=== PATIENT | female | born 1945 | race Caucasian/White ===

== ENCOUNTER 2016-07-09 09:37 | Outpatient (RCR) | payer OTHER ==
[~2016-07-09 09:37] MED LIST: CALC600T10 PO; KEPP250T5 PO; PANT40TA2 PO; [UNRECOGNIZED DRUG - CODE] IV
[2016-07-29] MEDS ORDERED: DEXA2TA PO (14:07)
--- NOTE | 2016-08-01 09:04 | RADONC ---
RADIATION ONCOLOGY PROGRESS NOTE: DATE: 07/29/2016 Ms. Salazar is presently at a dose of 1440 cGy to her primary brain tumor and is tolerating treatments quite well at this point with no complaints related to her radiation therapy. She is not having any headaches or other problems. REVIEW OF SYSTEMS: The patient's review of systems is noncontributory. Denies nausea, vomiting, fevers, chills, night sweats, diplopia, headaches, anxiety or depression, anorexia, weight loss, visual disturbances, chest pain, urinary or bowel difficulties, bone pain, or neurological problems. PHYSICAL EXAMINATION: The patient's skin is in excellent condition with no evidence of moist or dry desquamation. The remainder of her physical exam remains unchanged. Ms. Frazier is tolerating treatments quite well and radiation will continue as scheduled.
== END 2016-07-30 ==
LOC: M ONCR 09:37
PROVIDERS: ATTEND Radiology Radiation Oncology
DX: C71.3 Malignant neoplasm of parietal lobe (principal)

== ENCOUNTER → 2016-07-16 | Outpatient (CLI) | payer OTHER | LOC: M RAD 08:25 | PROVIDERS: ATTEND Radiology Radiation Oncology | DX: C71.3 Malignant neoplasm of parietal lobe (principal) ==

== ENCOUNTER 2016-07-31 11:53 | Outpatient (RCR) | payer OTHER ==
[~2016-07-31 11:53] MED LIST changes: +DEXA2TA PO
--- NOTE | 2016-08-07 09:03 | RADONC ---
RADIATION ONCOLOGY PROGRESS NOTE DATE: 08/05/2016 CHART NUMBER: [id number] Ms. Salazar is presently a dose of 2340 cGy to her brain tumor and is tolerating treatments quite well at this point with no complaints related to her radiation therapy. She is having no headaches or other problems. The patient's review of systems is noncontributory. She denies nausea, vomiting, fevers, chills, night sweats, diplopia, headaches, anxiety or depression, anorexia, weight loss, visual disturbances, chest pain, urinary or bowel difficulties, bone pain, or neurological problems. PHYSICAL EXAMINATION: The patient's skin is in good condition with no evidence of radiation change present. There is no moist or dry desquamation. The remainder of her physical exam remains unchanged. Ms. Salazar is tolerating treatments quite well and radiation will continue as scheduled.
--- NOTE | 2016-08-13 11:47 | RADONC ---
RADIATION ONCOLOGY PROGRESS NOTE DATE: 08/12/2016 CHART NUMBER: [id number] Ms. Salazar is presently at a dose of 3240 centigrade to her brain primary site and is tolerating treatments quite well at this point with no complaints related to her radiation therapy. She is having no headaches or other problems. REVIEW OF SYSTEMS: The patient's review of systems is noncontributory. Denies nausea, vomiting, fevers, chills, night sweats, diplopia, headaches, anxiety or depression, anorexia, weight loss, visual disturbances, chest pain, urinary or bowel difficulties, bone pain, or neurological problems. PHYSICAL EXAMINATION: The patient's skin is in good condition with no evidence of radiation change present. There is no moist or dry desquamation. The remainder of her physical exam remains unchanged. Ms. Cox is tolerating treatments quite well and radiation will continue as scheduled. Edited: 08/14/2016 0522 rosana
--- NOTE | 2016-08-22 08:57 | RADONC ---
RADIATION ONCOLOGY PROGRESS NOTE DATE: 08/19/2016 CHART NUMBER: [id number] Ms. Salazar is presently on a dose of 4140 cGy to her brain primary and is tolerating treatments quite well at this point with no complaints at all related to her radiation therapy. She is having no headaches or other problems. Overall, the patient says she feels incredibly well. She has energy and is having no problems. REVIEW OF SYSTEMS: The patient's review of systems is noncontributory. Denies nausea, vomiting, fevers, chills, night sweats, diplopia, headaches, anxiety or depression, anorexia, weight loss, visual disturbances, chest pain, urinary or bowel difficulties, bone pain, or neurological problems. PHYSICAL EXAMINATION: The patient's skin is in good condition with no evidence of radiation change present. There is no moist or dry desquamation. The remainder of physical exam remains unchanged. Ms. Salazar is tolerating treatments quite well and radiation will continue as scheduled.
--- NOTE | 2016-08-27 07:12 | RADONC ---
RADIATION ONCOLOGY PROGRESS NOTE: DATE: 08/26/2016 Ms Salazar is presently at a dose of 5040 cGy to her brain primary site and is tolerating treatments quite well at this point with no complaints related to her radiation therapy. She is having no headaches or other problems. REVIEW OF SYSTEMS: The patient's review of systems is noncontributory. Denies nausea, vomiting, fevers, chills, night sweats, diplopia, headaches, anxiety or depression, anorexia, weight loss, visual disturbances, chest pain, urinary or bowel difficulties, bone pain, or neurological problems. PHYSICAL EXAMINATION: The patient's skin is in good condition with no evidence of radiation change present. There is no moist or dry desquamation. The remainder of her physical exam remains unchanged. She is neurologically intact. Ms. Frazier is tolerating treatments quite well and radiation will continue as scheduled.
== END 2016-08-27 ==
LOC: M ONCR 11:53
PROVIDERS: ATTEND Radiology Radiation Oncology
DX: C71.3 Malignant neoplasm of parietal lobe (principal)

== ENCOUNTER → 2016-08-20 | Outpatient (REF) | payer OTHER | LOC: M LABDRAW1 11:30 | PROVIDERS: ATTEND Internal Medicine Cardiovascular Disease | DX: R94.31 Abnormal electrocardiogram [ECG] [EKG] (principal) ==

== ENCOUNTER 2016-08-28 14:30 | Outpatient (RCR) | payer OTHER ==
--- NOTE | 2016-09-03 09:29 | RADONC ---
RADIATION ONCOLOGY PROGRESS NOTE DATE: 09/02/2016 CHART NUMBER: [id number]. Ms. Salazar is presently dose of 5760 cGy to her primary brain and is tolerating treatments quite well at this point with no significant complaints at that related to her radiation therapy. REVIEW OF SYSTEMS: The patient's review of systems is largely noncontributory. She denies nausea, vomiting, fevers, chills, night sweats, diplopia, headaches, anxiety or depression, anorexia, weight loss, visual disturbances, chest pain, urinary or bowel difficulties, bone pain, or neurological problems. PHYSICAL EXAMINATION: The patient's skin is in good condition with no evidence of moist or dry desquamation. The remainder of her physical exam remains unchanged. Ms. Salazar is tolerating treatments quite well and radiation is scheduled for completion tomorrow.
--- NOTE | 2016-09-04 13:16 | RADONC ---
RADIATION ONCOLOGY TREATMENT SUMMARY DATE: 09/03/2016 CHART NUMBER: [id number]. DIAGNOSIS: Glioblastoma multiforme. GRADE: IV. ECOG PERFORMANCE STATUS: 0. TREATMENT SUMMARY: Ms. Salazar is a truly delightful, 71-year-old white female with the diagnosis of the glioblastoma multiforme who presented to us for consideration of definitive external beam radiation therapy with IMRT/IGRT. We treated the patient to her primary site for a total dose of 5940 cGy delivered in 33 fractions of 180 cGy each over 47 elapsed days from 07/18/2016 through 09/03/2016. The patient was treated on the linear accelerator utilizing a 6 MV photon beam via IMRT/IGRT. Ms. Salazar tolerated her treatments quite well with no difficulties related to her radiation therapy. She was able to complete therapy as prescribed without interruption. I have scheduled the patient to see me again in 1 month for further followup. She will also continue to be followed by her other physicians as well. I am giving the patient a Decadron taper schedule. cc: Lizbeth Siegel MD *Dr. Hyde *Onel Mclain MD
== END 2016-09-27 ==
LOC: M ONCR 14:30
PROVIDERS: ATTEND Radiology Radiation Oncology
DX: C71.3 Malignant neoplasm of parietal lobe (principal)

== ENCOUNTER 2016-08-30 13:46 | Outpatient (CLI) | payer OTHER ==
[~2016-08-30] VITALS: Ht 160 cm; Wt 73.3 kg
[~2016-08-30 13:46] MED LIST changes: +ACETAMINOPHEN TAB 650MG DOSE (2X325MG) PO SCH; +diphenhydrAMINE 25 MG CAP PO SCH
== END 2016-08-30 16:30 | disposition home or self-care (01) ==
LOC: M INFU 13:46
PROVIDERS: ATTEND Internal Medicine Medical Oncology
DX: D69.6 Thrombocytopenia, unspecified (principal)
CPT/HCPCS: 36430; 86900; 86901; P9036

== ENCOUNTER → 2016-09-28 | Outpatient (CLI) | payer OTHER ==
[~2016-09-28] MED LIST changes: -ACETAMINOPHEN TAB 650MG DOSE (2X325MG) PO SCH; -diphenhydrAMINE 25 MG CAP PO SCH
[2016-09-28 12:14] LABS: MEAN CORPUSCULAR HEMOGLOBIN 34.3 pg (27.0-33.0); MEAN CORPUSCULAR HGB CONC 33.7 g/dl (32.0-36.5); MEAN CORPUSCULAR VOLUME 101.8 fl (80.0-96.0); WHITE BLOOD COUNT 4.5 K/mm3 (4.0-10.0)
== END ==
LOC: M LAB 11:04
PROVIDERS: ATTEND Internal Medicine Medical Oncology
DX: D64.9 Anemia, unspecified (principal)

== ENCOUNTER 2016-09-30 06:59 | Outpatient (CLI) | payer OTHER ==
[~2016-09-30] VITALS: Ht 160 cm; Wt 73.3 kg
[2016-09-30] MEDS ORDERED: diphenhydrAMINE 25 MG CAP PO SCH (07:00)
[2016-09-30] MEDS ORDERED: ACETAMINOPHEN TAB 650MG DOSE (2X325MG) PO SCH (07:01)
== END 2016-09-30 12:00 | disposition home or self-care (01) ==
LOC: M INFU 06:59
PROVIDERS: ATTEND Internal Medicine Medical Oncology
DX: D46.9 Myelodysplastic syndrome, unspecified (principal); I48.91 Unspecified atrial fibrillation; Z79.899 Other long term (current) drug therapy
CPT/HCPCS: 36430; P9016

== ENCOUNTER → 2016-10-09 | Outpatient (CLI) | payer MEDICARE, OTHER ==
--- NOTE | 2016-10-10 11:19 | RADONC ---
RADIATION ONCOLOGY FOLLOWUP NOTE: DATE: 10/09/2016 CHART NO: [id number] DIAGNOSIS: Glioblastoma multiforme grade 4. ECOG PERFORMANCE STATUS: 1 Ms. Salazar is a truly delightful 71-year-old white female with the diagnosis of glioblastoma multiforme who is presenting to us today for routine followup visit 1 month post completion of external beam radiation therapy. The patient presents today reporting that she is doing quite well with no complaints at this time related to her radiation therapy or disease. She is having no headaches or other problems. REVIEW OF SYSTEMS: The patient's review of systems is noncontributory. Denies nausea, vomiting, fevers, chills, night sweats, diplopia, headaches, anxiety or depression, anorexia, weight loss, visual disturbances, chest pain, urinary or bowel difficulties, bone pain, or neurological problems. PHYSICAL EXAMINATION: The patient is a well-developed, well-nourished white female in no acute distress. HEENT: Exam shows a well-healed surgical scar present over scalp. The patient's skin is in good condition with no evidence of moist or dry desquamation. Extraocular movements are intact. There is no palpable cervical, supraclavicular, infraclavicular, axillary or inguinal lymphadenopathy present. The lungs are clear to auscultation and percussion. Neurologic exam is grossly intact sensory and motor. ASSESSMENT: The patient is clinically doing well at this point. She is being followed closely by Dr. Siegel as well as by Dr. Onel Mclain and Dr. Sb Matthews. In light of her close followup and management there, as well as her routine MRIs I have discharged her from our followup except on a as needed basis. cc: Lizbeth Siegel MD *Onel Mclain MD *Dylan Hyde MD
== END ==
LOC: M ONCR 14:47
PROVIDERS: ATTEND Radiology Radiation Oncology
DX: C71.3 Malignant neoplasm of parietal lobe (principal)

== ENCOUNTER 2016-10-26 10:10 | Emergency (ER) | payer OTHER ==
[~2016-10-26] VITALS: Ht 157.5 cm; Wt 72.6 kg
[2016-10-26 10:12] VITALS: BP 143/62
[2016-10-26] MEDS ORDERED: ELIQ5TAB PO (10:22)
[2016-10-26] MEDS ORDERED: SPIR25TA2 PO (10:22)
[2016-10-26] MEDS ORDERED: METO37.5 PO (10:22)
[2016-10-26] MEDS ORDERED: DIGO0.12 PO (10:22)
[2016-10-26] MEDS ORDERED: BACT800T5 PO (10:54)
[2016-10-26] MEDS ORDERED: BACTRIM 160MG/800MG DS TAB PO ONE (11:00)
[2016-10-26] MEDS ORDERED: KEFL500C7 PO (11:06)
[2016-10-26] MEDS: CEPHALEXIN 500 MG CAP PO ONE (11:10)
== END 2016-10-26 11:24 | disposition home or self-care (01) ==
LOC: M ED 10:40
DX: N75.1 Abscess of Bartholin's gland (principal); I10 Essential (primary) hypertension; Z85.841 Personal history of malignant neoplasm of brain; Z79.899 Other long term (current) drug therapy; Z79.01 Long term (current) use of anticoagulants

== ENCOUNTER → 2017-04-15 | Outpatient (REF) | payer OTHER ==
[~2017-04-15] MED LIST changes: +BACT800T5 PO; -CALC600T10 PO; +CALC600T31 PO; +DIGO0.12 PO; +ELIQ5TAB PO; +KEFL500C17 PO; +METO37.5 PO; +SPIR25TA2 PO
[2017-04-15 20:29] LABS: BLOOD UREA NITROGEN 21 MG/DL (7-18); CREATININE FOR GFR 0.79 MG/DL (0.55-1.02); GLOMERULAR FILTRATION RATE > 60.0 (>39)
== END ==
LOC: M LABDRWAD 19:50 → M LAB REF 19:50
PROVIDERS: ATTEND Orthopaedic Surgery
DX: M75.02 Adhesive capsulitis of left shoulder (principal)

== ENCOUNTER 2017-05-14 19:58 | Inpatient (IN) | payer OTHER ==
[~2017-05-14] VITALS: Ht 152.4 cm; Wt 65.0 kg
[2017-05-14] MEDS ORDERED: LORazepam 2 MG/ML VIAL (J2060) As Ordered ONE (20:23)
[2017-05-14] MEDS ORDERED: MULT1CHW26 PO (20:36)
[2017-05-14 21:14] LABS: BASO % 0.2 % (0.0-1.0); EOS # 0.1 10^3/uL (0.0-0.50); EOS % 1.2 % (0.0-3.0); IMMATURE GRANULOCYTE % 0.4 % (0-0); MEAN CORPUSCULAR HEMOGLOBIN 34.2 pg (27.0-33.0); MEAN CORPUSCULAR HGB CONC 33.7 g/dl (32.0-36.5); MEAN CORPUSCULAR VOLUME 101.4 fl (80.0-96.0); MONO # 0.5 10^3/uL (0.0-0.8); MONO % 9.1 % (0.0-5.0); NEUTROPHILS # 3.5 10^3/uL (1.8-7.7); NEUTROPHILS % 70.1 % (36.0-66.0); PLATELET COUNT, AUTOMATED 183 10^3/uL (150-450); RED CELL DISTRIBUTION WIDTH 12.5 % (11.5-14.5)
[2017-05-14] MEDS ORDERED: levETIRAcetam INJection 1,000 MG in D5W 100 ML IV ONE (21:30)
[2017-05-14 21:31] LABS: ALBUMIN 3.9 GM/DL (3.2-5.2); ALBUMIN/GLOBULIN RATIO 1.63 (1.00-1.93); BILIRUBIN,TOTAL 0.5 MG/DL (0.2-1.0); CALCIUM LEVEL 8.9 MG/DL (8.8-10.2); CREATININE FOR GFR 1.11 MG/DL (0.55-1.02); GLOMERULAR FILTRATION RATE 51.4 (>39); POTASSIUM SERUM 4.2 MEQ/L (3.5-5.1); TOTAL PROTEIN 6.3 GM/DL (6.4-8.2)
[2017-05-14 21:37] LABS: INR 1.05
[2017-05-14] MEDS ORDERED: MULTCHW14 PO (22:16)
[2017-05-14] MEDS ORDERED: ELIQ5TAB PO (22:16)
[2017-05-14] MEDS ORDERED: METO50TA7 PO (22:16)
[2017-05-14] MEDS ORDERED: SPIR25TA2 PO (22:16)
--- NOTE | 2017-05-14 23:00 | REPUSA ---
CLINICAL HISTORY: Seizure/brain tumor. COMPARISON: 06/13/2016. TECHNIQUE: Multiple axial, coronal, sagittal CT images were obtained through brain without IV contra st material. COMMENTS: The study shows normal configuration of sella turcica. Status post right frontoparietal craniotomy. There is resection of large enhancing parenchyma from t he parietal mass. There is ex-vacuo dilatation of the right lateral ventricle and encephalomalacia a nd porencephaly. There is no evidence of residual or recurrent mass although consider further evaluation with contrast enhanced MRI. Generalized parenchymal atrophy is seen. Periventricular and subcortical microvascular disease is no carlton. There are no intra or extra-axial collections. There is no midline shift. There is no evidence of h ematoma formation. No hydrocephalus is present. No abnormal calcifications are present. IMPRESSION: 1. Status post right frontoparietal craniotomy and resection of large enhancing parenchymal mass. 2. There is no evidence of residual or recurrent mass although I consider further evaluation with co ntrast enhanced MRI. 2. Generalized parenchymal atrophy. 3. Periventricular and subcortical microvascular disease.
[2017-05-14] MEDS ORDERED: LORazepam 2 MG/ML VIAL (J2060) IV PRN (23:45)
[2017-05-15] VITALS (9 sets, daily range): BP systolic 90–121; BP diastolic 50–60
[2017-05-15 04:54] LABS: IMMATURE GRANULOCYTE % 0.2 % (0-0); LYMPH # 0.5 10^3/uL (1.5-4.5); LYMPH % 8.7 % (24.0-44.0); MEAN CORPUSCULAR HEMOGLOBIN 34.1 pg (27.0-33.0); MEAN CORPUSCULAR HGB CONC 33.9 g/dl (32.0-36.5); MEAN CORPUSCULAR VOLUME 100.6 fl (80.0-96.0); MONO # 0.1 10^3/uL (0.0-0.8); MONO % 1.6 % (0.0-5.0); NEUTROPHILS % 89.5 % (36.0-66.0); PLATELET COUNT, AUTOMATED 174 10^3/uL (150-450); RED CELL DISTRIBUTION WIDTH 12.1 % (11.5-14.5); WHITE BLOOD COUNT 5.5 10^3/uL (4.0-10.0)
[2017-05-15 05:14] LABS: ANION GAP 7 MEQ/L (8-16); BLOOD UREA NITROGEN 25 MG/DL (7-18); CALCIUM LEVEL 8.9 MG/DL (8.8-10.2); CARBON DIOXIDE LEVEL 26 MEQ/L (21-32); CHLORIDE LEVEL 108 MEQ/L (98-107); GLOMERULAR FILTRATION RATE > 60.0 (>39); GLUCOSE, FASTING 146 MG/DL (83-110); POTASSIUM SERUM 4.3 MEQ/L (3.5-5.1); SODIUM LEVEL 141 MEQ/L (136-145)
--- NOTE | 2017-05-15 06:12 | IPNPDOC ---
Text Note Date of Service The patient was seen on 05/15/17. NOTE Patient Neuro/Onc is Dr. June. His COntact [phone] As per sign out from ED staff, outside Imaging may have shown Lesion near right Motor strip so began Decadron VS,Fishbone, I+O VS, Fishbone, I+O Laboratory Tests 05/14/17 20:52 Red Blood Count 3.45 L, Mean Corpuscular Volume 101.4 H, Mean Corpuscular Hemoglobin 34.2 H, Mean Corpuscular Hemoglobin Concent 33.7, Red Cell Distribution Width 12.5, Neutrophils (%) (Auto) 70.1 H, Lymphocytes (%) (Auto) 19.0 L, Monocytes (%) (Auto) 9.1 H, Eosinophils (%) (Auto) 1.2, Basophils (%) ( Auto) 0.2, Neutrophils # (Auto) 3.5, Lymphocytes # (Auto) 1.0 L, Monocytes # ( Auto) 0.5, Eosinophils # (Auto) 0.1, Basophils # (Auto) 0.0, Calcium Level 8.9, Aspartate Amino Transf (AST/SGOT) 13, Alanine Aminotransferase (ALT/SGPT) 20, Alkaline Phosphatase 74, Total Bilirubin 0.5, Total Protein 6.3 L, Albumin 3.9 05/15/17 04:41 Red Blood Count 3.58 L, Mean Corpuscular Volume 100.6 H, Mean Corpuscular Hemoglobin 34.1 H, Mean Corpuscular Hemoglobin Concent 33.9, Red Cell Distribution Width 12.1, Neutrophils (%) (Auto) 89.5 H, Lymphocytes (%) (Auto) 8.7 L, Monocytes (%) (Auto) 1.6, Eosinophils (%) (Auto) 0.0, Basophils (%) (Auto ) 0.0, Neutrophils # (Auto) 5.0, Lymphocytes # (Auto) 0.5 L, Monocytes # (Auto) 0.1, Eosinophils # (Auto) 0.0, Basophils # (Auto) 0.0, Calcium Level 8.9 Vital Signs Date Time Temp Pulse Resp B/P (MAP) Pulse Ox O2 Delivery O2 Flow Rate FiO2 05/15/17 04:00 97.6 99 18 100/58 (72) 95 Room Air JOSEFA LEE MD May 15, 2017 06:12
--- NOTE | 2017-05-15 06:16 | HPE ---
DATE OF ADMISSION: 05/14/2017 Mady Salazar is a 71-year-old. The patient comes in with chief complaint of new first-time seizure. The patient has a previous medical history of glioblastoma. The patient is status post debulking surgery this year. The patient was also recently found to have relapse in her cancer. She was out for dinner with her family when apparently she began to have a focal seizure on her left side, which eventually became a grand mal seizure. The patient was apparently seizing for three minutes. The patient came back into our emergency department (ED) where she was found to have continued seizure episodes, apparently reported as three seizure episodes; however, only partial seizures with shaking of the left side. These were witnessed by hospital staff. The patient had imaging where the report shows status post right frontal craniotomy and resection of large, enhancing parenchymal mass. There is no evidence of residual or recurrent mass although I would consider further evaluation with contrast enhanced MRI. Generalized parenchymal atrophy. Right ventricular subcortical microvascular disease. Patient also found to have possible mass effect on the brain as stated by the patient's neuro-oncologist; therefore, recommendation to start Decadron. Decadron was started 4 mg by mouth twice a day. The patient also started on Keppra. PREVIOUS MEDICAL HISTORY: As noted before. History of breast lump which was resected, and also osteopenia. Patient tired, lethargic, not fully able to give an excellent history. Family at this time has gone home. However, the patient notes that she is under getting anticoagulation. Unclear of the reason for the anticoagulation at this time. I have discussed it with her at length, and she is not sure. The patient also uses a form of head set for the tumor given to her at [facility]. It was now at home. The patient's family are going to bring it to be given when she gets here. The patient also taking certain medications for which the family is not sure. They are to bring those in also. PHYSICAL EXAMINATION: The patient is alert and oriented times three. Vital signs within normal limits. Patient able to move all four extremities. Patient with obvious scarring on the left side of her head secondary to the debulking surgery. CHEST: Good inspiratory/expiratory effort. No wheezes, rhonchi or rales. HEART: S1, S2. ABDOMEN: Soft and nontender. The patient is answering questions appropriately but is not able to give detailed responses and the patient does appear lethargic and not in any distress. LABORATORY DATA: Shows hemoglobin and hematocrit (H and H) mildly decreased at 11/8 over 35.0; otherwise CBC is generally intact. Chemistry: Sodium 142, potassium 4.2, chloride 107, carbon dioxide 26, anion gap nine, BUN and creatinine 29 over 1.11, fasting glucose 115, but this is not actually fasting glucose. Liver enzymes normal. Coagulation shows a PTT 26.7, INR 1.05, PT is 13.8. IMAGING: As noted above. ASSESSMENT AND PLAN: The patient is a 71-year-old female with multiple seizures, almost certainly secondary to mass effect of relapsed glioblastoma. Patient to be seen by neurology in the morning. Hematology/oncology also to be called in the morning. The patient in the meantime to be on seizure precautions in the intensive care unit (ICU). Patient getting Keppra and Decadron. Patient also to get Ativan on standby for possible reactivation of seizures. Patient on anticoagulation, unclear cause; however, given the seizures, we will withhold anticoagulation overnight. Patient to be on sequential compression devices (SCDs). Gastrointestinal (GI) prophylaxis proton pump inhibitor (PPI). Given the significant new symptoms and the patient's condition, it is likely that the patient will be admitted for greater than two midnights.
[2017-05-15] MEDS ORDERED: NAPROXEN 250 MG TAB PO PRN (08:45)
[2017-05-15] MEDS: levETIRAcetam 250MG TABLET (KEPPRA) PO SCH ×2 (08:53→20:51)
[2017-05-15] MEDS: LANSOPRAZOLE SUSPENSION 30 MG/10 ML ORAL SYRINGE (FIRST-LANSOPRAZOLE) PO SCH (08:54)
[2017-05-15] MEDS: SPIRONOLACTONE 25 MG TAB PO SCH (09:35)
[2017-05-15] MEDS: METOPROLOL TART 50 MG TAB PO SCH ×2 (09:35→20:51)
--- NOTE | 2017-05-15 15:59 | IPNPDOC ---
Subjective Date Seen The patient was seen on 05/15/17. Subjective Chief Complaint/HPI Patient seen and examined at the bedside. States that she is feeling better this morning, and denies any more episodes of seizure-like events. Objective Physical Examination General Exam: Positive: Alert, Cooperative, No Acute Distress ENT Exam: Positive: Mucous membr. moist/pink Neck Exam: Negative: JVD Chest Exam: Positive: Clear to auscultation, Normal air movement Heart Exam: Positive: Rate Normal, Irregular Rhythm, Normal S1, Normal S2 Telemetry: Positive: Atrial fibrillation Abdomen Exam: Positive: Soft, Negative: Tenderness Extremity Exam: Negative: Tenderness, Swelling Psych Exam: Positive: Oriented x 3 Assessment /Plan Plan/VTE VTE Prophylaxis Ordered?: Yes Plan New-Onset Focal Seizure(s) 2/2 Recurrence of Gliobastoma with a Lesion noted near the right Motor Strip on outpatient MRI done in the [place], [place] area on 05/14--as per the patient's Neuro /Oncologist Dr. June ([phone]) Order placed to obtain results of the o/p MRI The patient has been started on Decadron as per Neuro/Onc recommendations s/p Keppra loading in the ER, and currently on Keppra 1000mg BID The patient has not had any more seizure like events Seizure precautions Neurology consulted Hx of Glioblastoma Multiforme s/p Debulking in 05/2016, Radiation Therapy, and Gamma Knife Therapy Follows with Dr. Mclain of [facility] in [facility] Hx of Atrial Fibrillation Cont Metoprolol, Eliquis HTN, stable Cont Spironolactone DVT Prophylaxis Already on Eliquis VS, I&O, 24H, Bebetobonjoss Vital Signs/I&O Vital Signs Date Time Temp Pulse Resp B/P (MAP) Pulse Ox O2 Delivery O2 Flow Rate FiO2 05/15/17 11:00 87 16 98/50 (66) Room Air 05/15/17 09:00 94 05/15/17 08:00 97.7 I&O- Last 24 Hours up to 6 AM 05/16/17 06:00 Intake Total 480 ml Output Total 700 ml Balance -220 ml Laboratory Data 24H LABS Laboratory Tests 2 05/14/17 20:52: Immature Granulocyte % (Auto) 0.4H, White Blood Count 5.0, Red Blood Count 3.45L , Hemoglobin 11.8L, Hematocrit 35.0L, Mean Corpuscular Volume 101.4H, Mean Corpuscular Hemoglobin 34.2H, Mean Corpuscular Hemoglobin Concent 33.7, Red Cell Distribution Width 12.5, Platelet Count 183, Neutrophils (%) (Auto) 70.1H, Lymphocytes (%) (Auto) 19.0L, Monocytes (%) (Auto) 9.1H, Eosinophils (%) (Auto) 1.2, Basophils (%) (Auto) 0.2, Neutrophils # (Auto) 3.5, Lymphocytes # (Auto) 1.0L, Monocytes # (Auto) 0.5, Eosinophils # (Auto) 0.1, Basophils # (Auto) 0.0, Immature Granulocyte # (Auto) 0.0, Nucleated Red Blood Cells % (auto) 0.0, Prothrombin Time 13.8, Prothromb Time International Ratio 1.05, Activated Partial Thromboplast Time 26.7L, Anion Gap 9, Glomerular Filtration Rate 51.4, Blood Urea Nitrogen 29H, Creatinine 1.11H, Sodium Level 142, Potassium Level 4.2 , Chloride Level 107, Carbon Dioxide Level 26, Calcium Level 8.9, Aspartate Amino Transf (AST/SGOT) 13, Alanine Aminotransferase (ALT/SGPT) 20, Alkaline Phosphatase 74, Total Bilirubin 0.5, Total Protein 6.3L, Albumin 3.9, Albumin/ Globulin Ratio 1.63 05/15/17 04:41: Immature Granulocyte % (Auto) 0.2H, White Blood Count 5.5, Red Blood Count 3.58L , Hemoglobin 12.2, Hematocrit 36.0, Mean Corpuscular Volume 100.6H, Mean Corpuscular Hemoglobin 34.1H, Mean Corpuscular Hemoglobin Concent 33.9, Red Cell Distribution Width 12.1, Platelet Count 174, Neutrophils (%) (Auto) 89.5H, Lymphocytes (%) (Auto) 8.7L, Monocytes (%) (Auto) 1.6, Eosinophils (%) (Auto) 0.0, Basophils (%) (Auto) 0.0, Neutrophils # (Auto) 5.0, Lymphocytes # (Auto) 0.5L, Monocytes # (Auto) 0.1, Eosinophils # (Auto) 0.0, Basophils # (Auto) 0.0, Immature Granulocyte # (Auto) 0.0, Nucleated Red Blood Cells % (auto) 0.0, Anion Gap 7L, Glomerular Filtration Rate > 60.0, Blood Urea Nitrogen 25H, Creatinine 0.90, Sodium Level 141, Potassium Level 4.3, Chloride Level 108H, Carbon Dioxide Level 26, Calcium Level 8.9 CBC/BMP Laboratory Tests 05/14/17 20:52 Red Blood Count 3.45 L, Mean Corpuscular Volume 101.4 H, Mean Corpuscular Hemoglobin 34.2 H, Mean Corpuscular Hemoglobin Concent 33.7, Red Cell Distribution Width 12.5, Neutrophils (%) (Auto) 70.1 H, Lymphocytes (%) (Auto) 19.0 L, Monocytes (%) (Auto) 9.1 H, Eosinophils (%) (Auto) 1.2, Basophils (%) ( Auto) 0.2, Neutrophils # (Auto) 3.5, Lymphocytes # (Auto) 1.0 L, Monocytes # ( Auto) 0.5, Eosinophils # (Auto) 0.1, Basophils # (Auto) 0.0, Calcium Level 8.9, Aspartate Amino Transf (AST/SGOT) 13, Alanine Aminotransferase (ALT/SGPT) 20, Alkaline Phosphatase 74, Total Bilirubin 0.5, Total Protein 6.3 L, Albumin 3.9 05/15/17 04:41 Red Blood Count 3.58 L, Mean Corpuscular Volume 100.6 H, Mean Corpuscular Hemoglobin 34.1 H, Mean Corpuscular Hemoglobin Concent 33.9, Red Cell Distribution Width 12.1, Neutrophils (%) (Auto) 89.5 H, Lymphocytes (%) (Auto) 8.7 L, Monocytes (%) (Auto) 1.6, Eosinophils (%) (Auto) 0.0, Basophils (%) (Auto ) 0.0, Neutrophils # (Auto) 5.0, Lymphocytes # (Auto) 0.5 L, Monocytes # (Auto) 0.1, Eosinophils # (Auto) 0.0, Basophils # (Auto) 0.0, Calcium Level 8.9 CHEN CLARK MD May 15, 2017 15:58
[2017-05-15] MEDS: APIXABAN 5 MG TAB (ELIQUIS) PO SCH (20:51)
[2017-05-16] VITALS: BP 126/50
[2017-05-16] MEDS ORDERED: SLF 3 ML SYR IV PRN (02:00)
[2017-05-16 04:00] VITALS: BP 96/55
[2017-05-16 05:27] LABS: BASO % 0.1 % (0.0-1.0); IMMATURE GRANULOCYTE % 0.5 % (0-0); LYMPH # 0.7 10^3/uL (1.5-4.5); MEAN CORPUSCULAR HEMOGLOBIN 34.2 pg (27.0-33.0); MEAN CORPUSCULAR HGB CONC 33.7 g/dl (32.0-36.5); MEAN CORPUSCULAR VOLUME 101.4 fl (80.0-96.0); MONO # 0.3 10^3/uL (0.0-0.8); MONO % 2.9 % (0.0-5.0); NEUTROPHILS # 10.2 10^3/uL (1.8-7.7); NEUTROPHILS % 90.5 % (36.0-66.0); PLATELET COUNT, AUTOMATED 182 10^3/uL (150-450); RED CELL DISTRIBUTION WIDTH 12.4 % (11.5-14.5); WHITE BLOOD COUNT 11.2 10^3/uL (4.0-10.0)
[2017-05-16 05:46] LABS: ANION GAP 6 MEQ/L (8-16); BLOOD UREA NITROGEN 24 MG/DL (7-18); CALCIUM LEVEL 8.9 MG/DL (8.8-10.2); CARBON DIOXIDE LEVEL 27 MEQ/L (21-32); CHLORIDE LEVEL 109 MEQ/L (98-107); CREATININE FOR GFR 0.66 MG/DL (0.55-1.02); GLOMERULAR FILTRATION RATE > 60.0 (>39); GLUCOSE, FASTING 139 MG/DL (83-110); SODIUM LEVEL 142 MEQ/L (136-145)
[2017-05-16] MEDS ORDERED: SLF 3 ML SYR IV SCH (06:00)
--- NOTE | 2017-05-16 07:39 | CR ---
DATE OF CONSULTATION: 05/15/2017 REFERRING PHYSICIAN: Dr. Francisco Lebron REASON FOR CONSULTATION: Seizures. HISTORY OF PRESENT ILLNESS: Barbara Salazar is a 71-year-old woman with history of glioblastoma multiforme status post craniotomy, chemo and radiation therapy. She was eating at a restaurant when she started having shaking of the left side of her body which lasted for 1-2 minutes. She was brought to [facility] where she had a few more episodes of left-sided shaking lasting for a couple of minutes each time. She states that she did not lose consciousness in any of these episodes. Her has seen these episodes and agrees that there was never an episode in which she lost consciousness. He does not think that she had shaking of the right side of body at all. She denies any headaches, neck or back pain. She has left shoulder pain which is a chronic problem. She has left arm weakness. PAST MEDICAL HISTORY: 1. Glioblastoma multiforme status post craniotomy, chemo and radiation therapy. 2. History of breast lump resection. 3. Osteopenia. CURRENT MEDICATIONS: - Keppra 1000 mg by mouth twice a day - dexamethasone - Eliquis SOCIAL HISTORY: She denies smoking, alcohol or illicit drugs. FAMILY HISTORY: Noncontributory. REVIEW OF SYSTEMS: All systems were reviewed and found to be noncontributory except as mentioned history of present illness. PHYSICAL EXAMINATION: Temperature 97.7, pulse 83, respiratory rate 20, blood pressure 102/54. Heart: Regular rate and rhythm. Lungs: Clear to auscultation. No pedal edema. No tremor. No fractures or rash. Ears, nose and throat examination is within normal limits. The patient is awake, alert, oriented to place, person and time. Normal speech comprehension and repetition. Extraocular movements are intact. No facial weakness. Left arm strength is 2/5 and left leg strength is 4+/5. Right sided strength is 5/5. Deep tendon reflexes are 3+ on the left side and 2+ on the right side. Her left plantar is upgoing. She has decreased cold and pinprick sensation in left arm and leg. Gait could not be tested. She has no dysmetria on the right side. DIAGNOSTIC STUDIES: CT scan of her head was reviewed and showed postsurgical changes, edema in the right frontal, central, cortical and subcortical parra and white matters. ASSESSMENT: 1. Localization related symptomatic focal motor seizures, not intractable. 2. Right frontal and central glioblastoma multiforme. 3. Left hemiparesis. PLAN: 1. Keppra 1000 mg by mouth twice a day. 2. Continue dexamethasone and Eliquis for her glioblastoma multiforme and atrial fibrillation respectively. 3. The patient is scheduled to follow up with her medical and radiation oncologist this and next week. 4. Follow up with our office in 2-4 weeks after hospital discharge.
[2017-05-16 08:00] VITALS: BP 118/42
[2017-05-16] MEDS: LANSOPRAZOLE SUSPENSION 30 MG/10 ML ORAL SYRINGE (FIRST-LANSOPRAZOLE) PO SCH (08:50)
[2017-05-16] MEDS: levETIRAcetam 250MG TABLET (KEPPRA) PO SCH (08:51)
[2017-05-16] MEDS: APIXABAN 5 MG TAB (ELIQUIS) PO SCH (08:52)
[2017-05-16 08:54] VITALS: BP 92/60
[2017-05-16] MEDS: SPIRONOLACTONE 25 MG TAB PO SCH (08:54)
[2017-05-16] MEDS: METOPROLOL TART 50 MG TAB PO SCH (08:54)
[2017-05-16 12:00] VITALS: BP 101/51
[2017-05-16] MEDS ORDERED: DEXA4TA PO (13:10)
[2017-05-16] MEDS ORDERED: KEPP250T5 PO (13:10)
--- NOTE | 2017-05-16 14:46 | DS.PDOC ---
Discharge Summary General Date of Admission May 14, 2017 at 23:38 Date of Discharge 05/16/17 Specialist/Consultants Involve: RAFAEL FERNÁNDEZ MD Discharge Summary PROCEDURES PERFORMED DURING STAY: None. 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 HISTORY OF PRESENT ILLNESS: . 71-year-old female with past medical history of atrial fibrillation on eliquis, hypertension, and Glioblastoma multiforme status post craniotomy, chemo and radiation therapy presented to the ER after she had new onset multiple episodes of seizures. The patient stated that she was eating at a restaurant when she started to shake on the left side of her body. The patient was brought to [facility] where she had a few more episodes of left-sided shaking which lasted a few minutes each time. The patient denied losing consciousness during these episodes. The patient was admitted to the hospitalist service for further evaluation and management. During hospitalization, a CT scan of the head revealed postsurgical changes, edema in the right frontal, central, cortical, and subcortical parra and white matters. The patient's Neuro/Oncologist, Dr. June was contacted ([phone]) , and he noted that the patient just had a MRI of the brain on 05/14/17 as an outpatient which revealed a lesion near the right motor strip which may have been contributing to the patient's current seizure episodes. The patient was started on Decadron, and she was also loaded with Keppra and started on a 1000 mg twice a day dose. Since hospitalization, the patient has not had any more episodes of seizures. The patient did have an evaluation by neurology here, was recommended the patient to be discharged on Decadron and Keppra, and then she is to follow-up with neurology within 2-4 weeks. In addition, I did place a call to Dr. June to update him on the patient's current clinical condition. A message was left as there was no answer, and I am currently awaiting a call back. In any event, the patient is scheduled to follow-up with Dr. June on Friday05/18/17 for further evaluation and management. At this time, the patient states that she is feeling much better and denies any acute complaints. She has been seen and cleared by physical therapy. She has also been given a prescription for outpatient occupational therapy. I've advised patient to follow -up with her primary care physician within 7 days. In addition, the patient has been consulted to return to the ER for worsening of her symptoms, or any acute emergencies. DISCHARGE MEDICATIONS: Please see below. ALLERGIES: Please see below. PHYSICAL EXAMINATION ON DISCHARGE: VITAL SIGNS: Please see below. General Exam: Positive: Alert, Cooperative, No Acute Distress ENT Exam: Positive: Mucous membr. moist/pink Neck Exam: Negative: JVD Chest Exam: Positive: Clear to auscultation, Normal air movement Heart Exam: Positive: Rate Normal, Irregular Rhythm, Normal S1, Normal S2 Telemetry: Positive: Atrial fibrillation Abdomen Exam: Positive: Soft, Negative: Tenderness Extremity Exam: Negative: Tenderness, Swelling Psych Exam: Positive: Oriented x 3 LABORATORY DATA: Please see below. IMAGING: CLINICAL HISTORY: Seizure/brain tumor. COMPARISON: 06/13/2016. TECHNIQUE: Multiple axial, coronal, sagittal CT images were obtained through brain without IV contrast material. COMMENTS: The study shows normal configuration of sella turcica. Status post right frontoparietal craniotomy. There is resection of large enhancing parenchyma from the parietal mass. There is ex-vacuo dilatation of the right lateral ventricle and encephalomalacia and porencephaly. There is no evidence of residual or recurrent mass although consider further evaluation with contrast enhanced MRI. Generalized parenchymal atrophy is seen. Periventricular and subcortical microvascular disease is noted. There are no intra or extra-axial collections. There is no midline shift. There is no evidence of hematoma formation. No hydrocephalus is present. No abnormal calcifications are present. IMPRESSION: 1. Status post right frontoparietal craniotomy and resection of large enhancing parenchymal mass. 2. There is no evidence of residual or recurrent mass although I consider further evaluation with contrast enhanced MRI. 2. Generalized parenchymal atrophy. 3. Periventricular and subcortical microvascular disease. PROGNOSIS: Poor long-term prognosis ACTIVITY: As tolerated. DIET: . 2 g low sodium diet DISCHARGE PLAN: DISPOSITION: . Home DISCHARGE INSTRUCTIONS: 1. . Follow-up with Neuro/Onc, Dr. June on 05/18/17 2. . Follow up with Neurologist, Dr. Fernández in 2-4 weeks 3. . Follow up with PCP within 7 days ITEMS TO FOLLOWUP ON ON OUTPATIENT: 1. . Take medications as prescribed 2. . Return to the ER if symptoms return, worsen, or for any acute emergencies. DISCHARGE CONDITION: Stable. TIME SPENT ON DISCHARGE: Greater than 30 minutes. Vital Signs/I&Os Vital Signs Date Time Temp Pulse Resp B/P (MAP) Pulse Ox O2 Delivery O2 Flow Rate FiO2 05/16/17 08:54 92/60 05/16/17 08:00 98.3 101 17 100 Room Air I&O- Last 24 Hours up to 6 AM 05/17/17 06:00 Intake Total 360 ml Output Total 200 ml Balance 160 ml Laboratory Data Labs 24H Laboratory Tests 2 05/16/17 05:03: Immature Granulocyte % (Auto) 0.5H, White Blood Count 11.2H, Red Blood Count 3.51L, Hemoglobin 12.0, Hematocrit 35.6L, Mean Corpuscular Volume 101.4H, Mean Corpuscular Hemoglobin 34.2H, Mean Corpuscular Hemoglobin Concent 33.7, Red Cell Distribution Width 12.4, Platelet Count 182, Neutrophils (%) (Auto) 90.5H, Lymphocytes (%) (Auto) 6.0L, Monocytes (%) (Auto) 2.9, Eosinophils (%) (Auto) 0.0, Basophils (%) (Auto) 0.1, Neutrophils # (Auto) 10.2H, Lymphocytes # (Auto) 0.7L, Monocytes # (Auto) 0.3, Eosinophils # (Auto) 0.0, Basophils # (Auto) 0.0, Immature Granulocyte # (Auto) 0.1H, Nucleated Red Blood Cells % (auto) 0.0, Anion Gap 6L, Glomerular Filtration Rate > 60.0, Blood Urea Nitrogen 24H, Creatinine 0.66, Sodium Level 142, Potassium Level 4.0, Chloride Level 109H, Carbon Dioxide Level 27, Calcium Level 8.9 CBC/BMP Laboratory Tests 05/16/17 05:03 Red Blood Count 3.51 L, Mean Corpuscular Volume 101.4 H, Mean Corpuscular Hemoglobin 34.2 H, Mean Corpuscular Hemoglobin Concent 33.7, Red Cell Distribution Width 12.4, Neutrophils (%) (Auto) 90.5 H, Lymphocytes (%) (Auto) 6.0 L, Monocytes (%) (Auto) 2.9, Eosinophils (%) (Auto) 0.0, Basophils (%) (Auto ) 0.1, Neutrophils # (Auto) 10.2 H, Lymphocytes # (Auto) 0.7 L, Monocytes # ( Auto) 0.3, Eosinophils # (Auto) 0.0, Basophils # (Auto) 0.0, Calcium Level 8.9 Discharge Medications Scheduled (Multivitamin Gummies Adul) 1 Chw Chw, 3 CHW PO DAILY, (Reported) Apixaban Base (Eliquis) 5 Mg Tab, 5 MG PO BID, (Reported) Dexamethasone (Dexamethasone) 4 Mg Tab, 4 MG PO BID Levetiracetam (Keppra) 250 Mg Tab, 1,000 MG PO BID Metoprolol Tartrate (Metoprolol Tartrate) 50 Mg Tab, 75 MG PO BID, (Reported) Spironolactone (Spironolactone) 25 Mg Tab, 25 MG PO DAILY, (Reported) Allergies Coded Allergies: No Known Drug Allergy (Verified Allergy, Unknown, 10/02/15) CHEN CLARK MD May 16, 2017 14:46
== END 2017-05-16 16:00 | disposition home or self-care (01) | DRG 55 ==
LOC: EDBD 19:58 → M ED 19:58 → M ED INP 23:38 → M ICU 05-15 01:06 → M PCU 05-15 17:14
PROVIDERS: ADMIT Internal Medicine; ATTEND Internal Medicine
DX: C71.9 Malignant neoplasm of brain, unspecified (principal); G40.409 Other generalized epilepsy and epileptic syndromes, not intractable, without status epilepticus; I69.898 Other sequelae of other cerebrovascular disease; I48.91 Unspecified atrial fibrillation; Z79.01 Long term (current) use of anticoagulants; I10 Essential (primary) hypertension; Z79.899 Other long term (current) drug therapy

== ENCOUNTER 2017-06-02 10:34 | Emergency (ER) | payer OTHER ==
[~2017-06-02] VITALS: Ht 152.4 cm; Wt 65.0 kg
[~2017-06-02 10:34] MED LIST changes: +DEXA4TA PO; +METO50TA7 PO; +MULT1CHW26 PO; +MULTCHW14 PO
[2017-06-02] MEDS ORDERED: PANT20TA PO (10:55)
--- NOTE | 2017-06-02 12:42 | REP ---
CT Head without contrast HISTORY: Left side weakness COMPARISON: 05/14/2017 The patient is status post right parietal craniotomy and resection of a right parietal lobe tumor. Decreased attenuation is present in the right parietal and frontal lobes consistent with gliosis and chemotherapy and/or post radiation change. There is dilatation of the body of the right lateral ventricle consistent with the right parietal and frontal lobe encephalomalacia. The ventricular system and cortical sulci are dilated consistent with mild volume loss. There is no extra cerebral collection. There is no fracture. The visualized sinuses are clear. IMPRESSION: 1. There is postoperative gliosis and chemo and or post radiation change in the right parietal and frontal lobes. 2. Mild volume loss. Signed by Cristhian See MD 06/02/2017 12:34 P
--- NOTE | 2017-06-02 17:08 | REP ---
MR BRAIN WITHOUT CONTRAST: HISTORY: A glioblastoma. COMPARISON: CT 06/02/2017 and MR 06/19/2016. The patient is status-post right parietal craniotomy. A small area of cystic encephalomalacia with peripheral hemosiderin is present in the posterior right parietal lobe. Increased signal intensity on T2 weighted images is present in the surrounding white matter of the right parietal and frontal lobes. There is dilatation of the body of right lateral ventricle and overlying cortical sulci. This represents gliosis, chemotherapy, and or post radiation change. Areas of increased signal intensity on T2 weighted images are present in the periventricular and subcortical white matter. This represents small vessel ischemic disease. The ventricular system and cortical sulci are dilated consistent with mild volume loss. There is no extracerebral collection. The sinuses are clear. IMPRESSION:1. There is postoperative change in the posterior right parietal lobe. There is gliosis and chemo and or postradiation change. There is no definite recurrent tumor. Contrast MR is recommended for further evaluation. 2. Small vessel ischemic disease. 3. Mild volume loss. Signed by Cristhian See MD 06/03/2017 08:36 A
[2017-06-02 18:24] VITALS: BP 110/51
== END 2017-06-02 18:25 | disposition home or self-care (01) ==
LOC: M ED 10:34
DX: C71.9 Malignant neoplasm of brain, unspecified (principal); G93.6 Cerebral edema; Z92.3 Personal history of irradiation; Z92.21 Personal history of antineoplastic chemotherapy; Z79.01 Long term (current) use of anticoagulants; Z79.899 Other long term (current) drug therapy

== ENCOUNTER → 2017-06-04 | Outpatient (REF) | payer OTHER ==
[~2017-06-04] MED LIST changes: +PANT20TA PO
== END ==
LOC: M LAB REF 13:37
PROVIDERS: ATTEND Internal Medicine Medical Oncology
DX: C71.9 Malignant neoplasm of brain, unspecified (principal)

== ENCOUNTER → 2017-06-18 | Outpatient (REF) | payer OTHER | LOC: M LAB REF 13:11 | PROVIDERS: ATTEND Internal Medicine Medical Oncology | DX: C71.9 Malignant neoplasm of brain, unspecified (principal) ==

== ENCOUNTER 2017-06-29 12:22 | Emergency (ER) | payer OTHER ==
[2017-06-29 14:01] LABS: VENOUS BASE EXCESS 3.7 (-2.0-2.0); VENOUS HCO3 29.2 MEQ/L (23.0-27.0); VENOUS O2 SATURATION 46.3 % (60.0-80.0); VENOUS PARTIAL PRESSURE CO2 47.5 mmHg (38.0-50.0); VENOUS PARTIAL PRESSURE O2 25.4 mmHg (30.0-50.0); VENOUS PH 7.406 UNITS (7.330-7.430); VENOUS STANDARD HCO3 26.5 MEQ/L; VENOUS TOTAL CO2 30.6 MEQ/L (24.0-28.0)
[2017-06-29 14:05] LABS: HEMATOCRIT 34.9 % (36.0-47.0); HEMOGLOBIN 12.3 g/dl (12.0-16.0); IMMATURE GRANULOCYTE % 0.4 % (0-0); LYMPH # 0.4 10^3/uL (1.5-4.5); LYMPH % 9.5 % (24.0-44.0); MEAN CORPUSCULAR HEMOGLOBIN 34.2 pg (27.0-33.0); MEAN CORPUSCULAR HGB CONC 35.2 g/dl (32.0-36.5); MEAN CORPUSCULAR VOLUME 96.9 fl (80.0-96.0); MONO # 0.1 10^3/uL (0.0-0.8); MONO % 1.1 % (0.0-5.0); NEUTROPHILS # 4.1 10^3/uL (1.8-7.7); RED CELL DISTRIBUTION WIDTH 12.5 % (11.5-14.5); WHITE BLOOD COUNT 4.6 10^3/uL (4.0-10.0)
[2017-06-29 14:22] LABS: OSMOLALITY SERUM 296 MOSM/KG (280-301)
[2017-06-29 14:27] LABS: ALBUMIN/GLOBULIN RATIO 0.94 (1.00-1.93); ALKALINE PHOSPHATASE 47 U/L (45-117); ALT/SGPT 67 U/L (12-78); ANION GAP 5 MEQ/L (8-16); AST/SGOT 19 U/L (7-37); BILIRUBIN,DIRECT 0.2 MG/DL (0.0-0.2); BILIRUBIN,TOTAL 0.6 MG/DL (0.2-1.0); BLOOD UREA NITROGEN 35 MG/DL (7-18); CALCIUM LEVEL 7.7 MG/DL (8.8-10.2); CARBON DIOXIDE LEVEL 32 MEQ/L (21-32); CHLORIDE LEVEL 102 MEQ/L (98-107); CPK CREATINE PHOSPHOKINASE 34 U/L (26-192); CREATININE FOR GFR 0.52 MG/DL (0.55-1.02); GLOMERULAR FILTRATION RATE > 60.0 (>39); GLUCOSE, FASTING 105 MG/DL (83-110); POTASSIUM SERUM 4.4 MEQ/L (3.5-5.1); SODIUM LEVEL 139 MEQ/L (136-145); TOTAL PROTEIN 6.2 GM/DL (6.4-8.2); TROPONIN I 0.02 NG/ML (< 0.10)
[2017-06-29 14:29] LABS: PLATELET COUNT, AUTOMATED 10 10^3/uL (150-450); POS COUNT POS FLAG
[2017-06-29 14:30] LABS: IMMATURE PLATELET FRACTION % 1.4 % (0.0-9.6)
[2017-06-29 14:32] LABS: CK-MB VALUE MASS 3.6 NG/ML (0.0-3.6); MB/CK RELATIVE INDEX 10.58 (< OR =4)
[2017-06-29 16:22] LABS: KETONE, URINE AUTO RFX NEGATIVE (NEGATIVE); LEUKOCYTE ESTERASE UR AUTO RFX NEGATIVE (NEGATIVE); MUCUS, URINE RFX SMALL (NEGATIVE); NITRITE, URINE AUTO RFX NEGATIVE (NEGATIVE); RBC, URINE AUTO RFX 1 /HPF (0-3); SPECIFIC GRAVITY UR AUTO RFX 1.029 (1.002-1.035); SQUAM EPITHELIAL CELL UR AURFX 0 /HPF (0-6); WBC, URINE AUTO RFX 3 /HPF (0-3)
== END 2017-06-29 17:02 | disposition home or self-care (01) ==
LOC: M ED 12:22
DX: D69.6 Thrombocytopenia, unspecified (principal); S00.83XA Contusion of other part of head, initial encounter; S00.03XA Contusion of scalp, initial encounter; I48.91 Unspecified atrial fibrillation; W19.XXXA Unspecified fall, initial encounter; Y92.099 Unspecified place in other non-institutional residence as the place of occurrence of the external cause; Y93.01 Activity, walking, marching and hiking; Z85.841 Personal history of malignant neoplasm of brain; Z85.42 Personal history of malignant neoplasm of other parts of uterus; K21.9 Gastro-esophageal reflux disease without esophagitis; Z79.01 Long term (current) use of anticoagulants; Z79.899 Other long term (current) drug therapy
CPT/HCPCS: 71010

== ENCOUNTER → 2017-07-01 | Outpatient (REF) | payer OTHER ==
[2017-07-01 18:23] LABS: ANION GAP 7 MEQ/L (8-16); BLOOD UREA NITROGEN 36 MG/DL (7-18); CALCIUM LEVEL 8.5 MG/DL (8.8-10.2); CARBON DIOXIDE LEVEL 29 MEQ/L (21-32); CHLORIDE LEVEL 103 MEQ/L (98-107); GLOMERULAR FILTRATION RATE > 60.0 (>39); GLUCOSE, FASTING 131 MG/DL (83-110); POTASSIUM SERUM 4.2 MEQ/L (3.5-5.1); SODIUM LEVEL 139 MEQ/L (136-145)
== END ==
LOC: M LABDRWAD 16:27
DX: R56.9 Unspecified convulsions (principal)
CPT/HCPCS: 80048

== ENCOUNTER 2017-07-08 08:52 | Emergency (ER) | payer OTHER ==
[2017-07-08 09:41] LABS: HEMOGLOBIN 9.2 g/dl (12.0-16.0); LYMPH % 58.3 % (24.0-44.0); MEAN CORPUSCULAR HEMOGLOBIN 34.7 pg (27.0-33.0); MEAN CORPUSCULAR VOLUME 94.3 fl (80.0-96.0); MONO % 2.8 % (0.0-5.0); NEUTROPHILS % 38.9 % (36.0-66.0); RED BLOOD COUNT 2.65 10^6/uL (4.00-5.40); RED CELL DISTRIBUTION WIDTH 12.1 % (11.5-14.5)
[2017-07-08 09:55] LABS: LYMPH # 0.2 10^3/uL (1.5-4.5); NEUTROPHILS # 0.1 10^3/uL (1.8-7.7); PLATELET COUNT, AUTOMATED 5 10^3/uL (150-450); WHITE BLOOD COUNT 0.4 10^3/uL (4.0-10.0)
[2017-07-08 09:56] LABS: MEAN CORPUSCULAR HGB CONC 36.4 g/dl (32.0-36.5); POS COUNT POS FLAG; POSITIVE DIFF POS FLAG; POSITIVE MORPH POS FLAG
[2017-07-08 09:57] LABS: IMMATURE PLATELET FRACTION % 5.4 % (0.0-9.6); PLATELET F 5
[2017-07-08 09:58] LABS: PROTHROMBIN TIME 17.5 SECONDS (12.4-14.5)
[2017-07-08 09:59] LABS: PARTIAL THROMBOPLASTIN TIME 25.3 SECONDS (26.8-37.9)
[2017-07-08 10:11] LABS: ALBUMIN 2.7 GM/DL (3.2-5.2); ALBUMIN/GLOBULIN RATIO 0.79 (1.00-1.93); ALKALINE PHOSPHATASE 49 U/L (45-117); ALT/SGPT 42 U/L (12-78); ANION GAP 8 MEQ/L (8-16); AST/SGOT 17 U/L (7-37); BILIRUBIN,DIRECT 0.1 MG/DL (0.0-0.2); BILIRUBIN,TOTAL 0.5 MG/DL (0.2-1.0); BLOOD UREA NITROGEN 33 MG/DL (7-18); CALCIUM LEVEL 8.3 MG/DL (8.8-10.2); CARBON DIOXIDE LEVEL 29 MEQ/L (21-32); CHLORIDE LEVEL 102 MEQ/L (98-107); CREATININE FOR GFR 0.51 MG/DL (0.55-1.02); GLOMERULAR FILTRATION RATE > 60.0 (>39); GLUCOSE, FASTING 142 MG/DL (83-110); POTASSIUM SERUM 4.6 MEQ/L (3.5-5.1); SODIUM LEVEL 139 MEQ/L (136-145); TOTAL PROTEIN 6.1 GM/DL (6.4-8.2)
[2017-07-08] MEDS: NS 500 ML IV (10:45)
[2017-07-08] MEDS: NS 1,000 ML IV (13:30)
[2017-07-08] MEDS ORDERED: ISOVUE-370 76% 100ML VIAL (Q9967) As Ordered (13:47)
[2017-07-08 14:12] LABS: TYPE AND SCREEN 1 1
[2017-07-08 15:43] LABS: KETONE, URINE AUTO RFX NEGATIVE (NEGATIVE); LEUKOCYTE ESTERASE UR AUTO RFX NEGATIVE (NEGATIVE); MUCUS, URINE RFX SMALL (NEGATIVE); NITRITE, URINE AUTO RFX NEGATIVE (NEGATIVE); RBC, URINE AUTO RFX 1 /HPF (0-3); SPECIFIC GRAVITY UR AUTO RFX 1.021 (1.002-1.035); SQUAM EPITHELIAL CELL UR AURFX 0 /HPF (0-6); WBC, URINE AUTO RFX 0 /HPF (0-3)
== END 2017-07-08 17:21 | disposition home or self-care (01) ==
LOC: M ED 08:52
DX: D69.6 Thrombocytopenia, unspecified (principal); D61.818 Other pancytopenia; R04.0 Epistaxis; Z79.02 Long term (current) use of antithrombotics/antiplatelets; Z85.44 Personal history of malignant neoplasm of other female genital organs; Z85.841 Personal history of malignant neoplasm of brain; I10 Essential (primary) hypertension; I48.91 Unspecified atrial fibrillation
CPT/HCPCS: Q9967

== ENCOUNTER → 2017-07-16 | Outpatient (REF) | payer OTHER ==
[2017-07-16 14:06] LABS: HEMOGLOBIN 9.4 g/dl (12.0-16.0); MEAN CORPUSCULAR HEMOGLOBIN 34.2 pg (27.0-33.0); MEAN CORPUSCULAR HGB CONC 36.2 g/dl (32.0-36.5); MEAN CORPUSCULAR VOLUME 94.5 fl (80.0-96.0); RED BLOOD COUNT 2.75 10^6/uL (4.00-5.40); RED CELL DISTRIBUTION WIDTH 12.6 % (11.5-14.5); WHITE BLOOD COUNT 3.3 10^3/uL (4.0-10.0)
[2017-07-16 14:12] LABS: PLATELET COUNT, AUTOMATED 27 10^3/uL (150-450); POS COUNT POS FLAG; POSITIVE MORPH POS FLAG
[2017-07-16 14:13] LABS: ADD MANUAL DIFFER YES; DIFF SLIDE NUMBER 265
[2017-07-16 14:15] LABS: AMORPHOUS SEDIMENT MODERATE (NEGATIVE); APPEARANCE, URINE TURBID (CLEAR); BACTERIA, URINE AUTO NEGATIVE (NEGATIVE); BILIRUBIN, URINE AUTO NEGATIVE (NEGATIVE); BLOOD, URINE BLOOD NEGATIVE (NEGATIVE); COLOR, URINE AMBER (YELLOW); GLUCOSE, URINE (UA) AUTO NEGATIVE (NEGATIVE); KETONE, URINE AUTO NEGATIVE (NEGATIVE); LEUKOCYTE ESTERASE, URINE AUTO NEGATIVE (NEGATIVE); MUCUS, URINE SMALL (NEGATIVE); NITRITE, URINE AUTO NEGATIVE (NEGATIVE); PROTEIN, URINE AUTO NEGATIVE (NEGATIVE); RBC, URINE AUTO 2 /HPF (0-3); SPECIFIC GRAVITY URINE AUTO 1.028 (1.002-1.035); SQUAMOUS EPITHELIAL CELL UR AU 0 /HPF (0-6); WBC, URINE AUTO 0 /HPF (0-3)
[2017-07-16 14:33] LABS: ATYPICAL LYMPH 1 % (0-5); BANDS 15 % (< 11); LYMPHOCYTES 15 % (16-52); METAMYELOCYTES 5 % (0-0); MYELOCYTES 3 % (0-0); NEUTROPHILS 60 % (35-75); PROMYELOCYTES 1 % (0-0)
[2017-07-16 14:34] LABS: ANISOCYTOSIS 2+
[2017-07-16 14:35] LABS: PLATELET ESTIMATE MARKED DECREASE (NORMAL)
[2017-07-16 14:36] LABS: ALBUMIN 2.7 GM/DL (3.2-5.2); ALBUMIN/GLOBULIN RATIO 0.77 (1.00-1.93); ALKALINE PHOSPHATASE 83 U/L (45-117); ALT/SGPT 54 U/L (12-78); ANION GAP 10 MEQ/L (8-16); AST/SGOT 30 U/L (7-37); BILIRUBIN,TOTAL 0.5 MG/DL (0.2-1.0); BLOOD UREA NITROGEN 30 MG/DL (7-18); CALCIUM LEVEL 7.8 MG/DL (8.8-10.2); CARBON DIOXIDE LEVEL 27 MEQ/L (21-32); CHLORIDE LEVEL 98 MEQ/L (98-107); CREATININE FOR GFR 0.56 MG/DL (0.55-1.02); GLOMERULAR FILTRATION RATE > 60.0 (>39); GLUCOSE, FASTING 183 MG/DL (83-110); POTASSIUM SERUM 4.3 MEQ/L (3.5-5.1); SODIUM LEVEL 135 MEQ/L (136-145); TOTAL PROTEIN 6.2 GM/DL (6.4-8.2)
[2017-07-16 14:48] LABS: IMMATURE PLATELET FRACTION % 7.1 % (0.0-9.6)
== END ==
LOC: M SHH 13:20
DX: C71.9 Malignant neoplasm of brain, unspecified (principal)
CPT/HCPCS: 80053